=== PATIENT | female | born 1985 ===

== ENCOUNTER 2024-11-02 06:51 | Emergency (ER) | payer BC, SELFPAY ==
[2024-11-02 06:54] VITALS: BP 107/70
[2024-11-02] MEDS: NSS 1000 IV (08:01)
[2024-11-02] MEDS: ZOFRAN 4 MG IV (08:02)
[2024-11-02] MEDS: MORPHINE SULFATE 4 MG IV (08:18)
--- NOTE | 2024-11-02 08:20 | ED.GENMED ---
History of Present Illness
General
Chief Complaint: Abdominal Pain
Source: patient and spouse
Exam Limitations: none
Time Seen by Provider: 11/02/24 07:40
Nursing documentation reviewed up to this point in time: agreed with
History of Present Illness
History of Present Illness:
39-year-old female with no reported chronic medical issues presents to the ER for evaluation of abdominal pain with nausea, vomiting, diarrhea. Patient reports that she was on vacation in [facility] when she started having symptoms on
Saturday. She reports that she was having nausea, vomiting, diarrhea, crampy abdominal pain. She says that she went to the emergency room in [facility] and had fluids and Tylenol but no other treatment and was discharged. She was still
feeling sick over the weekend when she returned home, he started to notice some blood in her diarrhea; no blood in her vomitus. She says she has been having fevers and chills, body aches. She said with symptoms not improving decided to come to the
ER to be evaluated. She has not had any urinary symptoms. She denies any vaginal bleeding or discharge. Last menstrual period was 2 and half weeks ago. Denies any other complaints.
Review of Systems
Review of Systems
All Other Systems: ROS reviewed and negative except as documented in HPI and ROS
Constitutional: Reports fever, fatigue and chills
EENT: Denies sore throat or runny nose
Respiratory: Denies cough or trouble breathing
Cardiac: Denies chest pain
ABD/GI: Reports abdominal pain, nausea, vomiting, diarrhea and bloody stools
: Denies flank pain
Musculoskeletal: Reports muscle pain; Denies neck pain or back pain
Neurological: Denies dizzy or headache
Phy Exam
Physical Exam
Physical Exam:
General: Awake, alert, oriented x3; no acute distress
Head: Normocephalic, atraumatic
Eyes: Conjunctiva normal, sclera anicteric
Throat: Airway intact, dry mucous membranes
Neck: Trachea midline, supple without meningismus
Lungs: Clear to auscultation bilaterally, no wheezing, rales, rhonchi
Heart: Tachycardia with regular rhythm, no murmurs, gallops, or rubs
Abd: Soft, non distended, tender to palpation across lower abdomen
Neuro: No gross to have
Skin: Dry, warm, no rash
Extremities: No edema in extremities, warm and well-perfused
Scores
Heart Failure Risk
Heart Failure Risk Score: Not Applicable
Heart Score for Chest Pain Patients
STEMI patient?: Not applicable
Withdrawal Assessment of Alcohol
Withdrawal Assessment Completed?: Not applicable
Course
Orders/Labs/Results
Orders:
Orders
11/02/24 07:46
Stool Culture Urgent
ILYA Source: Feces/Stool
Specimen Description:
0.9% Sodium Chloride 1000 ml [Nss] 1,000 ml IV BOLUS
Ondansetron Injectable [Zofran] 4 mg IV NOW STA
Test Result ONCE
11/02/24 08:01
COVID-19 Antigen Urgent
Source: Nasal Swab
Complete Blood Count/With Diff Urgent
Comprehensive Metabolic Panel Urgent
HCG, Serum Qualitative Screen Urgent
Manual Differential Urgent
Influenza A+B Rapid Molecular Urgent
ILYA Source: Nasal Swab
Specimen Description:
11/02/24 08:12
CT Abd/pelvis W Iv Cont Urgent
Comment:
Reason For Exam: lower abd pain, diarrhea, fever, vomiting
Morphine Sulfate 4 mg IV NOW STA
11/02/24 10:13
Urinalysis Reflex To Culture Urgent
Date Specimen was Collected: 11/02/24
Time Specimen was Collected: 10:08
11/02/24 10:23
Electrocardiogram (*1) Urgent
Reason for Study: QTc Monitoring
EKG- Treatment ONCE
Azithromycin [Zithromax] 500 mg PO NOW STA
Abnormal Lab Results
11/02/24
08:01
WBC 3.5 L 10^3/uL
(4.8-10.8)
MCH 26.9 L pg
(27.0-31.0)
MPV 10.9 H fL
(7.4-10.4)
Band Neutrophils 19 H %
(0-3)
Sodium 134 L mmol/L
(135-145)
Carbon Dioxide 21 L mmol/L
(22-30)
Creatinine 1.1 H mg/dL
(0.6-1.0)
11/02/24 08:01
11/02/24 08:01
Vital Signs
Initial and Last Documented VS:
Initial Vital Signs
Temp Pulse Resp BP Pulse Ox
36.8 C 115 16 107/70 100
11/02/24 06:54 11/02/24 06:54 11/02/24 06:54 11/02/24 06:54 11/02/24 06:54
Last Documented Vital Signs
Temp Pulse Resp BP Pulse Ox
36.8 C 115 16 107/70 100
11/02/24 06:54 11/02/24 06:54 11/02/24 06:54 11/02/24 06:54 11/02/24 06:54
MDM/Problems Addressed
Differential Diagnosis Includes:
Colitis (bacterial, viral, less likely inflammatory bowel), gastroenteritis, diverticulitis
MDM/Problems Addressed:
39-year-old female presents for evaluation of nausea, vomiting, diarrhea, crampy abdominal pain in the setting of recent travel to [facility]. Has had some streaks of blood in her stools today. Tachycardic otherwise normal vitals.
Physical exam as above. Will place an IV send labs including a CBC and a CMP, hCG. Swab for COVID and flu. Check stool studies. Check CT abdomen pelvis. Provide fluids, pain control, antiemetic. Reassess after the above.
CBC shows marginal leukopenia otherwise unremarkable. CMP shows RJ with a creatinine of 1.1, mild metabolic acidosis non-anion gap likely from GI losses. hCG negative. COVID and flu negative. CT pending.
CT does show pancolitis and based on clinical history I suspect this is an infectious colitis. Given some streaks of blood in her stool and recent travel history I do think she should be covered with antibiotics. Stool samples collected. Case
discussed with infectious disease we will proceed with azithromycin 500 mg x 3 days. Patient appears well, heart rate normalized, tolerating p.o. here. She feels comfortable with trial of outpatient treatment and I think this is a reasonable plan.
All questions answered.
*Radiology
Radiology exam reviewed: radiology read reviewed
*Pulse Oximetry
Patient hypoxic: no
*Critical Care Note
Total Time (30-74mins, 75-104mins- exclusive of procedures): Not Applicable
Data Reviewed
Source: patient and spouse
Patient Management
Discussion with other providers: Litigation Attorney Associate (Discussed with infectious disease)
ED Attending Note
-
Portions of this chart may have been created with voice recognition software.� Occasional wrong word or��sound alike� substitutions may have occurred due to the inherent limitations of voice recognition software.
Discharge Plan
Departure
Patient with high blood pressure during this ER visit?: No
Discharge Problem:
Colitis
Instructions: Travelers' diarrhea
Prescriptions:
New
azithromycin 500 mg tablet
500 mg PO DAILY 2 Days Qty: 2 0RF
ondansetron 4 mg tablet,disintegrating
4 mg PO TIDPRN PRN (Reason: nausea/vomiting) Qty: 14 0RF
Referrals:
Joe Marx MD [Family Provider] - Follow up in 5-7 days
Activity Restrictions/Additional Instructions:
Thank you for visiting the Emergency Department at [facility].
1. Please schedule a follow up appointment as directed. Call first thing tomorrow morning to make an appointment.
2. If indicated, please take your medications as instructed and indicated on discharge paperwork.
3. If any of your symptoms do not improve, or persist, or become more severe within 6-12 hours, please return to the emergency department for further care.
4. Please return to the emergency department if you develop a headache, neck pain/stiffness, fever greater than 100.4F, chest pain, shortness of breath, persistent nausea, vomiting, slurred speech, difficulty walking, numbness/tingling, weakness,
signs of infection or any other symptoms that are worrisome to you.
Please call [phone] if you have any questions.
Interventions
Interventions:
*Risk Screen - Suicide Last Done: 11/02/24 06:57
*Neglect/Abuse Screening Last Done: 11/02/24 06:57
VQ-[id number]-Inmrfccebo Assessment Last Done: 11/02/24 09:43
Discharge Date and Time
Print Language: MAORI
[2024-11-02 08:34] LABS: HCG, Serum Qualitative Screen Negative
[2024-11-02 08:36] LABS: COVID-19 Antigen Negative (Negative)
[2024-11-02 08:41] LABS: ALT (SGPT) 19 U/L (0-35); AST (SGOT) 25 U/L (14-36); Albumin 3.8 g/dl (3.5-5.0); Alkaline Phosphatase 71 U/L (38-126); Blood Urea Nitrogen 14 mg/dl (7-17); Carbon Dioxide 21 mmol/L (22-30); Chloride 102 mmol/L (98-107); Glucose 97 mg/dl (70-99); Potassium 4.6 mmol/L (3.5-5.1); Sodium 134 mmol/L (135-145); Total Bilirubin 0.7 mg/dl (0.2-1.3); Total Protein 6.4 g/dl (6.3-8.2); eGFR > 60.00
[2024-11-02 08:47] LABS: Hematocrit 42.3 % (37.0-47.0); Mean Corp Hgb Conc. 33.1 g/dL (33.0-37.0); Mean Corpuscular Hgb 26.9 pg (27.0-31.0); Mean Corpuscular Volume 81.2 fL (81.0-99.0); Mean Platelet Volume 10.9 fL (7.4-10.4); Platelet Count 222 10^3/uL (130-400); Red Blood Cell Count 5.21 10^6/uL (4.20-5.40); Red Cell Dist. Width 13.4 % (11.5-14.5); White Blood Cell Count 3.5 10^3/uL (4.8-10.8)
[2024-11-02 09:31] LABS: Absolute Neutrophils -Man Diff 2.2 10^3/uL (1.4-6.5); Band Neutrophils 19 % (0-3); Lymphocytes 28 % (20-51); Monocytes 8 % (2-9); Normal RBC Morphology Yes; Platelets Checked Yes; Segmented Neutrophils 45 % (42-75); Total Cells Counted 100
[2024-11-02] MEDS: ZITHROMAX 500 MG PO (10:32)
[2024-11-02 10:34] LABS: Urine Albumin 1+ (Neg - Trace); Urine Bilirubin Negative (Negative); Urine Character Slightly Cloudy (Clear); Urine Color Yellow; Urine Glucose Negative (Negative); Urine Ketone 2+ (Negative); Urine Leukocyte Negative (Negative); Urine Nitrite Negative (Negative); Urine Occult Blood 4+ (Negative); Urine Specific Gravity 1.005 (<1.030); Urine Urobilinogen Negative (Neg - 1+)
[2024-11-02 10:45] VITALS: BP 97/69
[2024-11-02 11:02] LABS: Urine Squamous Cell >30 /LPF (Few)
[2024-11-02 11:03] LABS: Urine Mucus Few
[2024-11-02 11:04] LABS: Urine Bacteria Moderate (Negative)
== END 2024-11-02 11:01 | disposition home or self-care (01) ==
LOC: EMR 06:51
PROVIDERS: EMERGENCY PHYSICIAN Emergency Medicine; FAMILY PHYSICIAN Family Medicine
DX: K52.9 Noninfective gastroenteritis and colitis, unspecified (principal); Z11.52 Encounter for screening for COVID-19
CPT/HCPCS: 99285; 96374; 96375; 96361; 74177; 80053; 81003; 81015; 84703; 85025; 87045; 87046; 87077; 87086; 87427; 87502; 87811; Q9967